=== PATIENT | female | born 1945 | race Caucasian/White ===

== ENCOUNTER 2018-03-26 12:56 | Outpatient (CLI) | payer MEDICARE ==
--- NOTE | 2018-03-26 14:16 | MMO ---
BILATERAL SCREENING MAMMOGRAM: DATE: 03/26/18 HISTORY: 72-year-old female for screening mammography. COMPARISON: 07/02/16, 07/09/14, 07/30/13. FINDINGS: Bilateral MLO and CC views of the breasts show scattered fibroglandular breast tissue. There is no ev idence of suspicious mass, suspicious cluster of microcalcifications, or area of architectural distor tion. Interpretation of this mammogram was performed with the assistance of computer-aided detection. IMPRESSION: BIRADS 1: Negative Annual screening mammography is recommended. POS: GINGER
== END 2018-03-26 12:57 | disposition home or self-care (01) ==
LOC: SCSMAMMO 12:56
PROVIDERS: ATTEND Family Medicine
DX: Z12.31 Encounter for screening mammogram for malignant neoplasm of breast (principal)
CPT/HCPCS: 77067

== ENCOUNTER 2022-01-27 08:24 | Inpatient (IN) | payer MEDICARE ==
[2022-01-27] MEDS ORDERED: Ondansetron PF 4 MG/2 ML Vial ONE ×2 (08:53→11:17)
[2022-01-27] MEDS ORDERED: Dicyclomine 20 MG/2 ML VIAL ONE (08:53)
[2022-01-27 09:00] LABS: #Lymphocytes 0.4 thou/uL (1.20-3.40); #Monocytes 0.3 thou/uL (0.11-0.59); %Basophils 0.1 % (0.0-1.0); %Eosinophils 0.1 % (0.0-10.0); %Lymphocytes 3.9 % (21.0-51.0); %Monocytes 2.5 % (0.0-10.0); %Neutrophils 93.4 % (42.0-75.0); Hemoglobin 13.9 g/dL (12.0-16.0); Mean Corpuscular HGB CONC 33.9 g/dL (32.0-36.0); Mean Corpuscular Hemoglobin 31.1 pg (27.0-31.0); Mean Corpuscular Volume 91.7 fL (78.0-98.0); Mean Platelet Volume 8.7 fL (7.4-10.4); Platelet Count 285 thou/uL (130-400); RBC Distribution Width 12.6 % (11.5-14.5); Red Blood Cell (RBC) Count 4.46 mill/uL (4.20-5.40); White Blood Cell (WBC) Count 10.7 thou/uL (4.8-10.8)
[2022-01-27 09:22] LABS: ALT (SGPT) 19 U/L (8-55); AST (SGOT) 25 U/L (5-34); Albumin 4.2 g/dL (3.4-4.8); Alkaline Phosphatase 99 U/L (40-110); Anion Gap 16 mmol/L (10-20); BUN (Urea Nitrogen) 9 mg/dL (9.8-20.1); Bilirubin, Total 0.7 mg/dL (0.2-1.2); Calc. Creatinine Clearance 0 mL/min (70-130); Carbon Dioxide 20 mmol/L (23-31); Chloride 97 mmol/L (98-107); Globulin 2.8 g/dL (2.4-3.5); Glucose 188 mg/dL (83-110); Lipase 5 U/L (8-78); Magnesium 1.7 mg/dL (1.6-2.6); Potassium 3.2 mmol/L (3.5-5.1); Sodium 130 mmol/L (136-145)
[2022-01-27 09:55] LABS: Bilirubin Negative (Negative); Blood, Urine Negative (Negative); Clarity Clear (Clear); Glucose, Urine (Dipstick) 200 mg/dL (Negative); Ketone, Urine 40 mg/dL (Negative); Leukocyte Negative Leu/uL (Negative); Nitrite Negative (Negative); Protein, Urine (Dipstick) Negative (Neg-Trace); Specific Gravity, Urine 1.012 (1.002-1.036); Urobilinogen Normal mg/dL (Less than 2); pH, Urine 7.5 (5.0-9.0)
[2022-01-27] MEDS ORDERED: Potassium Chloride 20 MEQ TAB ONE (10:16)
[2022-01-27] MEDS ORDERED: Ketorolac Tromethamine 30 MG/ML VIAL ONE (11:17)
[2022-01-27] MEDS ORDERED: Morphine 4 MG/ML VIAL ONE (12:28)
[2022-01-27] MEDS ORDERED: Iopamidol-370 76% 500 ML 1 ML ONE (13:34)
[2022-01-27] MEDS ORDERED: Lidocaine Viscous Sol 2% 15 ml UD Cup ONE (13:43)
[2022-01-27] MEDS ORDERED: Benzocaine 20% Spray 60 ML CAN ONE (13:43)
[2022-01-27] MEDS ORDERED: Magnesium 2 GM/50 ML BAG (IN WATER) ONE (13:44)
[2022-01-27 13:58] LABS: Phosphorus 2.1 mg/dL (2.3-4.7)
[2022-01-27] MEDS ORDERED: Ondansetron ODT 4 MG TAB PO PRN (14:28)
[2022-01-27] MEDS ORDERED: Acetaminophen 325 MG TAB PO PRN (14:28)
[2022-01-27] MEDS ORDERED: Ondansetron PF 4 MG/2 ML Vial IVP PRN (14:28)
[2022-01-27] MEDS ORDERED: Electrolyte Replacement Protocol 1 EACH FS SCH (14:45)
[2022-01-27] MEDS ORDERED: Electrolyte Replacement Protocol FS PRN (14:45)
[2022-01-27] MEDS ORDERED: Potassium Phosphate 30 MMOL in Sodium Chloride 0.9% 250 ML 250 ML IVPB SCH (15:00)
[2022-01-27] MEDS: D5 0.9% NS w/ 20 mEq KCl 1,000 ML IV SCH ×2 (17:22→23:26)
[2022-01-27 18:25] VITALS: BMI 22.8
[2022-01-27 18:41] LABS: Anion Gap 10 mmol/L (10-20); BUN (Urea Nitrogen) 4 mg/dL (9.8-20.1); Calc. Creatinine Clearance 64 mL/min (70-130); Calcium 8.3 mg/dL (7.8-10.44); Carbon Dioxide 23 mmol/L (23-31); Chloride 108 mmol/L (98-107); Glucose 122 mg/dL (83-110); Sodium 137 mmol/L (136-145)
[2022-01-28] MEDS: D5 0.9% NS w/ 20 mEq KCl 1,000 ML IV SCH (06:08)
[2022-01-28 06:34] LABS: #Basophils 0.1 thou/uL (0.0-0.2); #Eosinphils 0.1 thou/uL (0.0-0.7); #Lymphocytes 0.9 thou/uL (1.20-3.40); #Monocytes 1.1 thou/uL (0.11-0.59); #Neutrophils 5.7 thou/uL (1.40-6.50); %Basophils 0.7 % (0.0-1.0); %Eosinophils 1.5 % (0.0-10.0); %Lymphocytes 11.9 % (21.0-51.0); %Monocytes 13.5 % (0.0-10.0); %Neutrophils 72.4 % (42.0-75.0); Hemoglobin 11.7 g/dL (12.0-16.0); Mean Corpuscular HGB CONC 33.3 g/dL (32.0-36.0); Mean Corpuscular Hemoglobin 31.6 pg (27.0-31.0); Mean Corpuscular Volume 95.1 fL (78.0-98.0); Mean Platelet Volume 8.7 fL (7.4-10.4); Platelet Count 229 thou/uL (130-400); RBC Distribution Width 12.9 % (11.5-14.5); White Blood Cell (WBC) Count 7.8 thou/uL (4.8-10.8)
[2022-01-28 06:40] LABS: Hemoglobin A1c 5.1 % (4.0-6.0)
[2022-01-28 06:47] LABS: Lactic Acid 0.7 mmol/L (0.5-2.2)
[2022-01-28 06:53] LABS: Anion Gap 10 mmol/L (10-20); BUN (Urea Nitrogen) 4 mg/dL (9.8-20.1); Calc. Creatinine Clearance 66 mL/min (70-130); Carbon Dioxide 22 mmol/L (23-31); Chloride 110 mmol/L (98-107); Potassium 4.5 mmol/L (3.5-5.1); Sodium 137 mmol/L (136-145)
[2022-01-28 06:54] LABS: Glucose 107 mg/dL (83-110); Magnesium 2.2 mg/dL (1.6-2.6)
[2022-01-28 07:01] LABS: Phosphorus 3.5 mg/dL (2.3-4.7)
[2022-01-28 20:41] VITALS: BP 127/74; TEMP 97.9
== END 2022-01-28 20:25 | disposition home or self-care (01) | DRG 392 ==
LOC: ERS 08:24 → SURG B 14:03
PROVIDERS: ADMIT Hospitalist; ATTEND Internal Medicine
DX: K52.9 Noninfective gastroenteritis and colitis, unspecified (principal); E87.1 Hypo-osmolality and hyponatremia; Z66 Do not resuscitate; E03.9 Hypothyroidism, unspecified; I10 Essential (primary) hypertension; K21.9 Gastro-esophageal reflux disease without esophagitis; F32.A Depression, unspecified; E83.42 Hypomagnesemia; E87.6 Hypokalemia; E83.39 Other disorders of phosphorus metabolism; Z88.3 Allergy status to other anti-infective agents; Z88.0 Allergy status to penicillin; Z88.8 Allergy status to other drugs, medicaments and biological substances; Z90.710 Acquired absence of both cervix and uterus; Z82.49 Family history of ischemic heart disease and other diseases of the circulatory system
CPT/HCPCS: 36415; 74018; 74177; 80048; 80053; 81003; 83036; 83605; 83690; 83735; 84100; 84484; 85025; 87040; 94760; 96365; 96372; 96375; 96376; J0500; J1885; J2270; J2405; J3475; J3480; J7050; Q9967